=== PATIENT | female | born 1980 | race Caucasian/White ===

== ENCOUNTER → 2017-03-01 | Outpatient (CLI) | payer OTHER ==
[~2017-03-01] MED LIST: ALDACTONE100 MG PO; ALLEGRA60 MG PO; CLEAR EYES REDN30 M1 BOTH EYES; FLONASE SENSIM9.9 ML BOTH NARES; IRON160 M1 PO; LASIX20 MG PO; METFORMIN HCL1000 MG PO; METFORMIN HCL500 MG PO; NEXIUM 24HR20 M1 PO; SINGULAIR10 MG PO
== END | disposition home or self-care (01) ==
LOC: AMB 13:00
PROC: 0HBLXZZ Excision of Left Lower Leg Skin, External Approach (ICD-10-PCS; principal; 2017-03-01)
DX: L72.0 Epidermal cyst (principal)
CPT/HCPCS: 88304